=== PATIENT | female | born 1980 | race Caucasian/White ===

== ENCOUNTER 2017-12-17 22:47 | Inpatient (IN) | payer OTHER ==
[2017-12-17] MEDS ORDERED: LACTATED RINGER'S 1,000 ML IV (23:16)
[2017-12-17] MEDS ORDERED: OXYTOCIN 30 UNITS/LR 500 ML IV ×2 (23:30)
[2017-12-17] MEDS ORDERED: METHYLERGONOVINE 0.2 MG INJ IM (23:30)
[2017-12-17] MEDS ORDERED: BUTORPHANOL 2 MG INJ IV (23:30)
[2017-12-17] MEDS ORDERED: IBUPROFEN 600 MG TAB PO (23:30)
[2017-12-17] MEDS ORDERED: CARBOPROST 250 MCG INJ IM (23:30)
[2017-12-17] MEDS ORDERED: MISOPROSTOL 200 MCG TAB PR (23:30)
[2017-12-17] MEDS: LACTATED RINGER'S 1,000 ML IV (23:55)
[2017-12-18] MEDS: AMPICILLIN 2 GM/NS (PMX) 100 ML IV (00:20)
[2017-12-18 00:44] LABS: ADD MAN DIFF? NO
[2017-12-18 00:49] LABS: BASOPHILS % 0.3 % (0.0-2.0); EOSINOPHILS % 0.6 % (0.0-7.0); HEMATOCRIT 39.3 % (37.0-47.0); HEMOGLOBIN 13.8 g/dl (12.0-16.0); LYMPHOCYTES # 2.3 10^3/ul (0.8-2.9); LYMPHOCYTES % 33.4 % (15.0-51.0); MEAN CORPUSCULAR HEMOGLOBIN 33.2 pg (29.0-33.0); MEAN CORPUSCULAR HGB CONC 35.1 g/dl (32.0-37.0); MEAN CORPUSCULAR VOLUME 94.5 fl (82.0-101.0); MEAN PLATELET VOLUME 12.5 fl (7.4-10.4); MONOCYTE # 0.5 10^3/ul (0.3-0.9); MONOCYTES % 7.6 % (0.0-11.0); NEUTROPHILS % 57.7 % (39.0-77.0); PLATELET COUNT 148 10^3/UL (140-415); RED BLOOD COUNT 4.16 10^6/ul (4.20-5.40); RED CELL DISTRIBUTION WIDTH 12.9 % (11.5-14.5)
[2017-12-18 00:49] LABS: WHITE BLOOD COUNT 6.9 10^3/ul (4.8-10.8)
[2017-12-18] MEDS: OXYTOCIN 30 UNITS/LR 500 ML IV ×3 (01:00→05:46)
[2017-12-18] MEDS: LIDOCAINE 1% (MPF) 30 ML INJ INJ (01:01)
[2017-12-18 01:03] LABS: INR 0.74; PROTIME 10.5 Sec (11.9-14.9); PT RATIO 0.8
[2017-12-18 01:04] LABS: PARTIAL THROMBOPLASTIN TIME 23.9 Sec (25.0-35.0)
[2017-12-18 01:37] LABS: HEPATITIS B SURFACE ANTIGEN NEGATIVE (NEGATIVE)
[2017-12-18] MEDS ORDERED: ACETAMINOPHEN 325 MG TAB PO (02:00)
[2017-12-18] MEDS ORDERED: ZOLPIDEM 5 MG TAB PO (02:00)
[2017-12-18] MEDS ORDERED: MISOPROSTOL 200 MCG TAB PR (02:00)
[2017-12-18] MEDS ORDERED: METHYLERGONOVINE 0.2 MG INJ IM (02:00)
[2017-12-18] MEDS ORDERED: DIPHENHYDRAMINE 25 MG CAP PO (02:00)
[2017-12-18] MEDS ORDERED: CARBOPROST 250 MCG INJ IM (02:00)
[2017-12-18] MEDS ORDERED: ONDANSETRON 4 MG INJ IV (02:00)
[2017-12-18] MEDS ORDERED: METHYLERGONOVINE 0.2 MG TAB PO (02:00)
[2017-12-18] MEDS ORDERED: HYDROCODONE/APAP (5/325) TAB PO (02:00)
[2017-12-18] MEDS: IBUPROFEN 600 MG TAB PO ×5 (02:16→23:32)
[2017-12-18] MEDS ORDERED: AMPICILLIN 1 GM/NS (PMX) 50 ML IV (03:30)
[2017-12-18] MEDS: LANOLIN 7 GM TUBE TOP (05:44)
[2017-12-18] MEDS: WITCH HAZEL/GLYCERIN PAD PR (05:44)
[2017-12-18] MEDS: SENNA/DOCUSATE NA (8.6MG/50MG) TAB PO ×2 (08:30→21:33)
[2017-12-18 21:39] LABS: RAPID PLASMA REAGIN NONREACTIVE (NR)
[2017-12-19] MEDS: IBUPROFEN 600 MG TAB PO ×3 (05:18→17:52)
[2017-12-19] MEDS: SENNA/DOCUSATE NA (8.6MG/50MG) TAB PO ×2 (09:51→21:22)
[2017-12-19 10:35] LABS: HEMATOCRIT 34.1 % (37.0-47.0); HEMOGLOBIN 11.7 g/dl (12.0-16.0)
[2017-12-19 15:48] LABS: RHOGAM PROFILE 1 1
[2017-12-20] MEDS: IBUPROFEN 600 MG TAB PO ×4 (00:13→18:00)
[2017-12-20] MEDS: VARICELLA VACCINE LIVE/PF 1,350 UNIT/0.5 ML ML SC* (09:56)
[2017-12-20] MEDS: SENNA/DOCUSATE NA (8.6MG/50MG) TAB PO (09:56)
[2017-12-20] MEDS: MEASLES,MUMPS,RUBELLA VACCINE INJ SC* (09:56)
[2017-12-20] MEDS: DIPHTH/TET/ACEL PERTUSS (ADULT) 0.5 ML VIAL IM* (17:50)
== END 2017-12-20 19:11 | disposition home or self-care (01) | DRG 775 ==
LOC: OBT 22:47 → L-D 22:48 → PP1 12-18 02:59 → L-D 23:50
PROVIDERS: Obstetrics & Gynecology Obstetrics
PROC: 10E0XZZ Delivery of Products of Conception, External Approach (ICD-10-PCS; principal; 2017-12-18)
PROC: 0KQM0ZZ Repair Perineum Muscle, Open Approach (ICD-10-PCS; 2017-12-18)
PROC: 3E033VJ Introduction of Other Hormone into Peripheral Vein, Percutaneous Approach (ICD-10-PCS; 2017-12-18)
DX: O70.1 Second degree perineal laceration during delivery (principal); Z37.0 Single live birth; Z3A.37 37 weeks gestation of pregnancy
CPT/HCPCS: 36415; 85014; 85018; 85025; 85610; 85730; 86592; 86850; 86870; 86885; 86900; 86901; 87340; 90715